=== PATIENT | male | born 1960 | race Caucasian/White ===

== ENCOUNTER 2023-01-21 08:54 | Day surgery (SDC) | payer OTHER ==
[2023-01-20 14:09] VITALS: BMI 44.4
[2023-01-21] MEDS ORDERED: Oxymetazoline HCl 0.05% (30 ML BOT) ONE ×2 (09:07→09:56)
[2023-01-21] MEDS ORDERED: Bacitracin Zinc Ointment 30 gm TUBE ONE (09:56)
[2023-01-21] MEDS ORDERED: Lidocaine 1% (PF) 30 ML VIAL ONE (09:56)
[2023-01-21] MEDS ORDERED: EPINEPHrine 1 MG/ML AMP ONE (09:56)
[2023-01-21] MEDS ORDERED: Acetaminophen 500 MG TAB ONE (10:14)
[2023-01-21] MEDS ORDERED: Rocuronium Bromide 10 MG/ML (10ML VIAL) ONE (10:29)
[2023-01-21] MEDS ORDERED: Dexamethasone 20 MG/5 ML VIAL ONE (10:29)
[2023-01-21] MEDS ORDERED: ePHEDrine Sulfate 50 MG/10 ML VIAL ONE (10:29)
[2023-01-21] MEDS ORDERED: PROPOFOL 200 MG/20 ML VIAL ONE (10:29)
[2023-01-21] MEDS ORDERED: Ondansetron PF 4 MG/2 ML Vial ONE (10:29)
[2023-01-21] MEDS ORDERED: fentaNYL 50 mcg/mL 1 mL Vial ONE (10:31)
[2023-01-21] MEDS ORDERED: fentaNYL PF 100 MCG/2 ML SYRINGE ONE (10:31)
[2023-01-21] MEDS ORDERED: SUGAMMADEX SODIUM 200 MG/2 ML VIAL ONE (10:36)
[2023-01-21] MEDS ORDERED: Triamcinolone 40 MG/ML VIAL ONE (12:45)
== END 2023-01-21 15:40 | disposition home or self-care (01) ==
LOC: SDC 08:54
PROVIDERS: ATTEND Student in an Organized Health Care Education/Training Program
PROC: 09BR8ZZ Excision of Left Maxillary Sinus, Via Natural or Artificial Opening Endoscopic (ICD-10-PCS; principal; 2023-01-21)
PROC: 09BT8ZZ Excision of Left Frontal Sinus, Via Natural or Artificial Opening Endoscopic (ICD-10-PCS; principal; 2023-01-21)
PROC: 09BM8ZZ Excision of Nasal Septum, Via Natural or Artificial Opening Endoscopic (ICD-10-PCS; principal; 2023-01-21)
PROC: 09BV8ZZ Excision of Left Ethmoid Sinus, Via Natural or Artificial Opening Endoscopic (ICD-10-PCS; principal; 2023-01-21)
PROC: 09BL8ZZ Excision of Nasal Turbinate, Via Natural or Artificial Opening Endoscopic (ICD-10-PCS; principal; 2023-01-21)
DX: J32.8 Other chronic sinusitis (principal); J34.3 Hypertrophy of nasal turbinates; J34.2 Deviated nasal septum; I10 Essential (primary) hypertension; G47.30 Sleep apnea, unspecified; E11.9 Type 2 diabetes mellitus without complications; Z79.84 Long term (current) use of oral hypoglycemic drugs; Z79.899 Other long term (current) drug therapy
CPT/HCPCS: 93005; 93010; J0171; J1100; J2001; J2405; J2704; J3010; J3301